=== PATIENT | female | born 2000 | race Caucasian/White ===

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

== ENCOUNTER 2019-08-09 04:40 | Emergency (ER) | payer OTHER, BC, SELFPAY ==
[2019-08-09 04:49] VITALS: BP 180/114; PULSE 142; RESP 20; TEMP 37.1; O2SAT 97
[2019-08-09] MEDS: SODIUM CHLORIDE 0.9% 1,000 ML 150 ML IV (05:08)
--- NOTE | 2019-08-09 05:21 | ED_ITS ---
HPI - Arrhythmia/Palpitations General Chief Complaint: Arrhythmia/Palpitations Stated Complaint: Fast heart beat Time Seen by Provider: 08/09/19 04:40 Source: patient Mode of arrival: Ambulatory Limitations: no limitations History of Present Illness HPI narrative: 19-year-old female, nonsmoker presents with her mother for evaluation of a rapid heart rate which seems to worsen with any exertion. She feels a bit fatigued and under the weather and at the end of the interview mentions that she had multiple episodes of loose stools yesterday. She denies recent travel, use of antibiotics or exposure to bad food. 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 She denies any chest pain. She does take control. Her last menstrual cycle was about 1 week ago and slightly heavier than normal MD complaint: rapid heart beat and heart racing Onset (ago): day(s) Duration: intermittent Severity: moderate Related Data Previous Rx's Medication Instructions Recorded cholecalciferol (vitamin D3) 1,000 1,000 unit PO DAILY #30 cap 07/19/18 unit capsule metformin 500 mg tablet 500 mg PO DAILY #60 tab 10/24/18 buspirone 10 mg tablet 10 mg PO BID #60 tab 12/17/18 norgestimate 0.25 mg-ethinyl 1 tab PO QDAY #3 pac 04/17/19 estradiol 35 mcg tablet Allergies Allergy/AdvReac Type Severity Reaction Status Date / Time No Known Drug Allergies Allergy Unverified 08/21/18 13:44 Review of Systems Constitutional Constitutional: Denies chills, Denies fatigue, Denies fever(s), Denies frequent falls, Denies lethargy and Denies weakness Eyes Eyes: Denies change in vision, Denies eye discharge, Denies irritation and Denies loss of vision ENT Ears, Nose, Mouth, and Throat: Denies change in voice, Denies dizziness, Denies neck pain, Denies sore throat and Denies throat swelling Cardiovascular Cardiovascular: Denies chest pain, Reports rapid heart rate, Denies irregular heart rhythm, Reports lightheadedness, Reports palpitations, Denies dyspnea, Denies dyspnea on exertion and Denies orthopnea Respiratory Respiratory: Denies cough, Denies dyspnea, Denies dyspnea on exertion and Denies wheezing Gastrointestinal Gastrointestinal: Denies abdominal pain, Denies change in bowel habits, Reports diarrhea, Denies nausea and Denies vomiting Genitourinary Genitourinary: Denies hematuria, Denies flank pain, Denies urinary incontinence and Denies urinary urgency Musculoskeletal Musculoskeletal: Denies back pain, Denies muscle weakness, Denies neck pain, Denies numbness and Denies tingling Integumentary/Breasts Skin/Breast: Denies pruritus, Denies erythema, Denies rash and Denies wounds Neurologic Neurologic: Denies behavioral changes, Denies confusion, Denies dizziness, Denies frequent falls, Denies loss of vision, Denies numbness, Denies tingling and Denies weakness Psychiatric Psychiatric: Denies anxiety, Denies behavioral changes, Denies confusion, Denies depression, Denies homicidal ideation and Denies suicidal ideation Endocrine Endocrine: Denies fatigue, Denies flushing and Reports palpitations Hematologic/Lymphatic Hematologic/Lymphatic: Denies easy bruising Allergic/Immunologic Allergic/Immunologic: Denies urticaria, Denies throat swelling and Denies wheezing Patient History Medical History PCOS (polycystic ovarian syndrome) (Chronic) Family History Mother Hyperlipidemia Hypertension Father Hyperlipidemia Hypertension Grandfather Heart disease Stroke Myocardial infarction Grandmother Anxiety Grandfather Heart disease Kidney failure Sister Connective tissue disorder Social History Smoking Status: Never smoker alcohol intake: never substance use type: does not use alcohol intake frequency: a few times a month Substance Use Type: does not use Exam Narrative Exam Narrative: GENERAL: [19] year old patient appears stated age. Well- nourished, well-developed patient, in mild distress. HEAD: Atraumatic. Normocephalic. EYES: Pupils equal round and reactive. Extraocular motions intact. No scleral icterus. No injection or drainage. ENT: Nose without bleeding, purulent drainage. Throat without erythema, tonsillar hypertrophy or exudate. Airway patent. NECK: Trachea midline. Non tender CARDIOVASCULAR: Tachycardic but regular rhythm without murmurs, gallops, or rubs. RESPIRATORY: Clear to auscultation. Breath sounds equal bilaterally. No wheezes, rales, or rhonchi. GASTROINTESTINAL: Abdomen soft, non-tender, nondistended. EXTREMITIES: No edema or joint tenderness. BACK: Nontender without deformity or crepitance. No flank tenderness. NEURO: AOx3. SKIN: No rash or erythema of visible areas Initial Vital Signs Initial Vital Signs: Vital Signs Temperature 98.8 F 08/09/19 04:49 Pulse Rate 142 H 08/09/19 04:49 Respiratory Rate 20 08/09/19 04:49 Blood Pressure 180/114 H 08/09/19 04:49 Pulse Oximetry 97 08/09/19 04:49 Course Course Course Narrative: Marked improvement after fluid administration Orders Ordered: Discontinued Medications Sodium Chloride (Normal Saline 0.9%) 1,000 mls @ 150 mls/hr IV CONT GISELE Last Infusion: 08/09/19 06:10 Dose: 0 mls/hr Documented by: Infusion: 08/09/19 05:15 Dose: 1,000 mls/hr Documented by: Admin: 08/09/19 05:08 Dose: 150 mls/hr Documented by: JAMEY Sodium Chloride (Normal Saline 0.9%) 1,000 mls @ 1,000 mls/hr IV BOLUS ONE Stop: 08/09/19 07:04 Last Infusion: 08/09/19 07:23 Dose: 0 mls/hr Documented by: Admin: 08/09/19 06:10 Dose: 1,000 mls/hr Documented by: JAMEY Vital Signs Vital signs: Vital Signs - 8 hr 08/09/19 04:49 08/09/19 07:00 Temperature 98.8 F Pulse Rate 142 H 80 Respiratory Rate 20 21 Blood Pressure 180/114 H Blood Pressure [Right Arm] 123/68 Pulse Oximetry 97 100 MDM - Arrhythmia/Palpitations Lab Data Result diagrams: 08/09/19 05:30 08/09/19 05:30 Labs: Lab Results 08/09/19 08/09/19 08/09/19 Range/Units 05:30 05:30 05:30 WBC 11.1 H (4.5-11.0) X10^3/uL RBC 4.16 (4.0-5.2) X10^6/uL Hgb 11.9 L (12.0-16.0) g/dL Hct 35.1 L (36-46) % MCV 84.3 (80-100) fL MCH 28.5 (26-34) PG MCHC 33.8 (30-36) % RDW 13.2 (11.6-14.8) % Plt Count 289 (150-400) X10^3/uL Neut % (Auto) 61.4 (50-75) % Lymph % (Auto) 26.7 (25-40) % Power % (Auto) 8.5 (3-14) % Eos % (Auto) 2.9 (2-4) % Baso % (Auto) 0.5 (0-2) % Neut # (Auto) 6800 (0269-4231) /uL Lymph # (Auto) 3000 (2725-3769) /uL Power # (Auto) 900 (0-900) /uL Eos # (Auto) 300 (0-450) /uL Baso # (Auto) 100 (0-100) /uL D-Dimer < 200 (<230) ng/mL Sodium 140 (137-145) mmol/L Potassium 3.9 (3.4-5.1) mmol/L Chloride 105 (98-107) mmol/L Carbon Dioxide 25 (22-32) mmol/L BUN 12 (7-17) mg/dL Creatinine 0.50 L (0.52-1.04) mg/dL Estimated GFR > 60.0 (>60) mL/min BUN/Creatinine Ratio 24.0 H (6-22) Glucose 126 H (70-100) mg/dL Calcium 9.1 (8.4-10.2) mg/dL Magnesium 1.8 (1.6-2.3) mg/dL Total Creatine Kinase 58 (30-135) U/L CK-MB (CK-2) TNP CK-MB (CK-2) Rel Index TNP Troponin I < 0.012 (0.01-0.034) ng/mL TSH (0.47-4.68) uIU/mL 08/09/19 Range/Units 05:30 WBC (4.5-11.0) X10^3/uL RBC (4.0-5.2) X10^6/uL Hgb (12.0-16.0) g/dL Hct (36-46) % MCV (80-100) fL MCH (26-34) PG MCHC (30-36) % RDW (11.6-14.8) % Plt Count (150-400) X10^3/uL Neut % (Auto) (50-75) % Lymph % (Auto) (25-40) % Power % (Auto) (3-14) % Eos % (Auto) (2-4) % Baso % (Auto) (0-2) % Neut # (Auto) (3057-4302) /uL Lymph # (Auto) (7413-4116) /uL Power # (Auto) (0-900) /uL Eos # (Auto) (0-450) /uL Baso # (Auto) (0-100) /uL D-Dimer (<230) ng/mL Sodium (137-145) mmol/L Potassium (3.4-5.1) mmol/L Chloride (98-107) mmol/L Carbon Dioxide (22-32) mmol/L BUN (7-17) mg/dL Creatinine (0.52-1.04) mg/dL Estimated GFR (>60) mL/min BUN/Creatinine Ratio (6-22) Glucose (70-100) mg/dL Calcium (8.4-10.2) mg/dL Magnesium (1.6-2.3) mg/dL Total Creatine Kinase (30-135) U/L CK-MB (CK-2) CK-MB (CK-2) Rel Index Troponin I (0.01-0.034) ng/mL TSH 10.00 H (0.47-4.68) uIU/mL ECG Data Attestation: I personally reviewed and interpreted this ECG as follows: Interpretation: EKG is tachycardic sinus rhythm rate [ 122] and free of any signs of ischemia or ectopy. No ST segmental elevation or depression. No T wave inversions Discharge Plan Departure Patient Disposition: Home Clinical Impression: Acute dehydration Diarrhea Qualifiers: Diarrhea type: unspecified type Qualified Code(s): R19.7 - Diarrhea, unspecified Discharge Date/Time: 08/09/19 07:27 Activity Restrictions/Additional Instructions: 1. Drink plenty of fluids with frequent small sips. 2. For the next 24 hours a clear liquid diet is advised. After that please employ a brat diet which would include bananas, rice, apples, toast. 3. Please take medications as directed. 4. Please follow-up with your doctor in the next 1-2 days. Call the office for an appointment. 5. Please return to the emergency Department for any worsening or persistent symptoms, such as increasing pain or fever. Prescriptions: No Action cholecalciferol (vitamin D3) 1,000 unit capsule 1,000 unit PO DAILY Qty: 30 RF: 0 metformin 500 mg tablet 500 mg PO DAILY Qty: 60 RF: 5 buspirone 10 mg tablet 10 mg PO BID Qty: 60 RF: 11 norgestimate-ethinyl estradiol [Sprintec (28)] 0.25-35 mg-mcg tablet 1 tab PO QDAY Qty: 3 RF: 1 Referrals: Klaudia Larkin ARNP [Primary Care Provider] -
--- NOTE | 2019-08-09 05:23 | PC.NURSE ---
Pt reports having multiple episodes of diarrhea starting last night about 2300. Denied any nausea or emesis.
[2019-08-09 05:39] LABS: Add Manual Diff / Slide Review NO; Basophils Absolute Auto 100 /uL (0-100); Basophils Percent Auto 0.5 % (0-2); Eosinophils Absolute Auto 300 /uL (0-450); Eosinophils Percent Auto 2.9 % (2-4); Hematocrit 35.1 % (36-46); Hemoglobin 11.9 g/dL (12.0-16.0); Lymphocytes Absolute Auto 3000 /uL (1100-4500); Lymphocytes Percent Auto 26.7 % (25-40); Mean Corpuscular HGB Conc 33.8 % (30-36); Mean Corpuscular Hemoglobin 28.5 PG (26-34); Mean Corpuscular Volume 84.3 fL (80-100); Monocytes Absolute Auto 900 /uL (0-900); Monocytes Percent Auto 8.5 % (3-14); Neutrophils Absolute Auto 6800 /uL (1500-7000); Neutrophils Percent Auto 61.4 % (50-75); Platelet Count 289 X10^3/uL (150-400); Red Blood Cell Count 4.16 X10^6/uL (4.0-5.2); Red Cell Distribution Width 13.2 % (11.6-14.8); White Blood Cell Count 11.1 X10^3/uL (4.5-11.0)
[2019-08-09 05:48] LABS: Blood Urea Nitrogen 12 mg/dL (7-17); Calcium 9.1 mg/dL (8.4-10.2); Carbon Dioxide 25 mmol/L (22-32); Chloride 105 mmol/L (98-107); Creatine Kinase 58 U/L (30-135); Estimated Glomerular Filt Rate > 60.0 mL/min (>60); Glucose 126 mg/dL (70-100); HEMOLYSIS < 15 (0-50); Magnesium 1.8 mg/dL (1.6-2.3); Potassium 3.9 mmol/L (3.4-5.1); Sodium 140 mmol/L (137-145)
[2019-08-09 05:49] LABS: D Dimer < 200 ng/mL (<230)
[2019-08-09 06:00] LABS: Troponin I < 0.012 ng/mL (0.01-0.034)
[2019-08-09] MEDS: SODIUM CHLORIDE 0.9% 1,000 ML 1000 ML IV (06:10)
[2019-08-09 07:00] VITALS: BP 123/68; PULSE 80; RESP 21; O2SAT 100
[2019-08-09 07:24] VITALS: BP 123/68; PULSE 88; RESP 15; O2SAT 98
== END 2019-08-09 07:27 | disposition home or self-care (01) ==
PROVIDERS: Emergency Provider Emergency Medicine; PCP Registered Nurse
DX: E86.0 Dehydration (principal); R19.7 Diarrhea, unspecified; R00.0 Tachycardia, unspecified
CPT/HCPCS: 36415; 80048; 82550; 83735; 84443; 84484; 85025; 85379; 93005; 96360; 96361; 99283; 99284

== ENCOUNTER → 2019-11-12 13:00 | Outpatient (CLI) | payer OTHER, BC, SELFPAY ==
[2019-11-12 15:34] LABS: Adenovirus Not Detected (Not Detect); Bordetella pertussis Not Detected (Not Detect); Chlamydophila pneumoniae Not Detected (Not Detect); Coronavirus 229E Not Detected (Not Detect); Coronavirus HKU1 Not Detected (Not Detect); Coronavirus NL 63 Not Detected (Not Detect); Coronavirus OC43 Not Detected (Not Detect); Human Metapneumovirus Not Detected (Not Detect); Human Rhinovirus/Enterovirus Not Detected (Not Detect); Influenza A Not Detected (Not Detect); Influenza B Not Detected (Not Detect); Mycoplasma pneumoniae Not Detected (Not Detect); Parainfluenza Virus 1 Not Detected (Not Detect); Parainfluenza Virus 2 Not Detected (Not Detect); Parainfluenza Virus 3 Not Detected (Not Detect); Parainfluenza Virus 4 Not Detected (Not Detect); Respiratory Syncytial Virus Not Detected (Not Detect)
== END ==
PROVIDERS: PCP Registered Nurse; Visit Provider Physician Assistant
DX: R68.89 Other general symptoms and signs (principal)
CPT/HCPCS: 87633

== ENCOUNTER → 2020-04-30 11:24 | Outpatient (CLI) | payer OTHER, BC, SELFPAY ==
--- NOTE | 2020-04-30 11:29 | DIET.PN ---
Dietary Progress Note Assessment: 19y F referred to nutrition for dietary help with PCOS, preDM, HLD, HTG. Pt dx c PCOS at 12, went on control and metformin. HT: 5'6 WT: 270#, +15# with Covid UBW: 220# BMI: 43.6 Labs: TSH 3.65 WNL, A1c 5.9 H preDM, 79, TC 261 H, TG 212 H Usual Day: wakes 11am eats 1-2pm: leftover from dinner hangs out, sometimes hike around [place] 6-7pm: cooks for self and eats at kitchen table sometimes alone sometimes c family, pasta c butter and parmesan or marinara c chicken breast, eats out a lot [employer], [place] food, comfort foods Sn: veggie straws, fruits-frozen blueberries, smoothie, low fat laughing cow Dr: water (40oz), coffee stand 1-2/mo, Sprite when eating out Last food usually around 10pm falls asleep 12-1am eats more fruits than veggies Vegetables usually cooked: asparagus, kale chips, onions, garlic, broccoli, mushrooms, green beans, snap peas, tomatoes, cecelia 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 Nutrition Diagnosis: altered nutrition related laboratory values r/t endocrine dysfunction aeb pt diagnosed c PCOS, A1c 5.9, TC 261, TG 212, BMI 43.6, pt diet reliant on high carbohydrate intake. Interventions: 1. Discussed Healthy Plate, how to problem solve meals to fit this model. 2. Discussed carb level for preDM and PCOS, set at 30-45g per meal and 15-30g per snack. 3. Discussed increasing capacity for F/V consumption, provided pt with handout for Youtube videos on easy vegetable sides. 4. Discussed physical activity, aiming for 150min walking per week and 20 min 2d/w of resistance training. 5. To increase insulin sensitivity, encouraged pt to fast 13hours over night. Monitoring/Evaluations: f/u in 1mo to assess progress.
== END ==
PROVIDERS: PCP Registered Nurse; Referring Provider Student in an Organized Health Care Education/Training Program; Visit Provider Student in an Organized Health Care Education/Training Program
DX: E28.2 Polycystic ovarian syndrome (principal); R73.03 Prediabetes; E78.5 Hyperlipidemia, unspecified; Z79.84 Long term (current) use of oral hypoglycemic drugs
CPT/HCPCS: 97802

== ENCOUNTER → 2020-06-15 11:59 | Outpatient (CLI) | payer OTHER, BC, SELFPAY ==
--- NOTE | 2020-06-15 12:02 | DIET.PN ---
Dietary Progress Note Assessment: 20y F c PCOS and preDM attending f/u RD appointment. Pt has been busy since our last visit. She has been mindful of her fat intake, focusing on healthy fats rather than saturated fats but has been eating out more and not participating in regular physical activity. Pt has been doing 13 hour intermittent fasting regularly. 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 Work days sometimes eats at hospital but often brings leftovers or sandwich Has Mon and Fri off so does schooling with 15 min breaks Usual Intake: Sandwiches [employer] thin sliced c turkey c tomatoes, onion, lettuce, mustard and slaughter), easy quick things from home, cheerios Fast foods r/t needing things that are quick Not so much movement besides long days at work. WT: 270# Interventions: 1. Pt understands importance of regular physical activity to manage insulin resistance and weight. Because of pts busy schedule, pt will do 15 minute workout each evening. Introduced pt to [employer]ahu and asked her to prioritize HIIT style workouts. 2. As pt is busy and relying on quick meals, introduced pt to fasting-mimicking diet to help manage weight and PCOS. Gave pt recipe packet and protocol to follow 5 consecutive days per month, once per month. This includes meal prepping instructions which are conducive to pts busy lifestyle. Monitoring/Evaluations: f/u in 6w to assess progress and problem solve barriers, healthy carb controlled snacks and quick meals
== END ==
PROVIDERS: PCP Registered Nurse; Referring Provider Registered Nurse; Visit Provider Registered Nurse
DX: R73.03 Prediabetes (principal); E28.2 Polycystic ovarian syndrome; Z71.3 Dietary counseling and surveillance
CPT/HCPCS: 97803